=== PATIENT | male | born 1955 | race Asian ===

== ENCOUNTER 2022-05-15 11:45 | Emergency (ER) | payer OTHER ==
[~2022-05-15] VITALS: Ht 177.8 cm; Wt 78.0 kg
[2022-05-15 13:46] VITALS: BP 119/82
[2022-05-15] MEDS ORDERED: HYDROcodone-ACET 5/325MG TAB PO ONE (14:00)
[2022-05-15] MEDS ORDERED: IBUP800T27 PO (14:36)
[2022-05-15] MEDS ORDERED: AMOX875T3 PO (14:36)
[2022-05-15] MEDS ORDERED: METH750T22 PO (14:36)
== END 2022-05-15 14:43 | disposition home or self-care (01) ==
LOC: ER 11:45
DX: S29.011A Strain of muscle and tendon of front wall of thorax, initial encounter (principal); R51.9 Headache, unspecified; J01.90 Acute sinusitis, unspecified; Z79.899 Other long term (current) drug therapy; V49.3XXA Car occupant (driver) (passenger) injured in unspecified nontraffic accident, initial encounter; Y93.89 Activity, other specified; Y92.89 Other specified places as the place of occurrence of the external cause; Y99.8 Other external cause status
CPT/HCPCS: 70450; 71046; 93005